=== PATIENT | female | born 1935 | race Caucasian/White ===

== ENCOUNTER 2020-09-11 20:43 | Observation (INO) | payer SELFPAY ==
--- NOTE | 2020-09-11 21:22 | RAD ---
XR Chest 1 View Portable History: Chest pain Comparison: None. Findings: Mild background lung hyperinflation. Scarring throughout the lung apices. Mild scarring hernandez g bases. No pneumothorax or effusion. Cardiac silhouette and mediastinal contours are within normal limits. Impression: Chronic findings. No acute intrathoracic abnormality.
[2020-09-11] MEDS ORDERED: Nitroglycerin 0.4 MG TAB 1 EACH ONE (21:23)
[2020-09-11 21:47] LABS: Hemoglobin 15.4 g/dL (12.0-16.0); Mean Corpuscular HGB CONC 34.4 g/dL (32.0-36.0); Mean Corpuscular Hemoglobin 30.3 pg (27.0-31.0); Mean Corpuscular Volume 88.2 fL (78.0-98.0); Mean Platelet Volume 7.5 fL (7.4-10.4); Platelet Count 256 thou/uL (130-400); RBC Distribution Width 12.8 % (11.5-14.5); Red Blood Cell (RBC) Count 5.07 mill/uL (4.20-5.40); White Blood Cell (WBC) Count 10.9 thou/uL (4.8-10.8)
[2020-09-11 21:48] LABS: Eosinophils 1 % (0-10); Lymphocytes 49 % (21-51); MDiff Complete? YES; Metamyelocyte 1 % (0-0); Monocytes 5 % (0-10); Neutrophil 42 % (42-75); Platelet Morphology Comment Appears Adequate; Reactive Lymphocytes 1 % (0-10)
[2020-09-11 21:53] LABS: ALT (SGPT) 15 U/L (8-55); AST (SGOT) 27 U/L (5-34); Albumin 4.4 g/dL (3.4-4.8); Alkaline Phosphatase 162 U/L (40-110); Anion Gap 17 mmol/L (10-20); BUN (Urea Nitrogen) 19 mg/dL (9.8-20.1); Bilirubin, Total 0.3 mg/dL (0.2-1.2); CK (CPK) 232 U/L (29-168); Calc. Creatinine Clearance 0 mL/min (70-130); Calcium 9.5 mg/dL (7.8-10.44); Carbon Dioxide 25 mmol/L (23-31); Chloride 98 mmol/L (98-107); Globulin 3.8 g/dL (2.4-3.5); Glucose 250 mg/dL (83-110); Lipase 35 U/L (8-78); Protein, Total 8.2 g/dL (6.0-8.3); Sodium 136 mmol/L (136-145)
[2020-09-11 22:16] LABS: CKMB 1.2 ng/mL (0-6.6)
[2020-09-11] MEDS ORDERED: Nitroglycerin 2% Ointment 1 INCH/1 GM Packet ONE (23:03)
[2020-09-11] MEDS ORDERED: Enoxaparin Sodium 60 MG/0.6 ML SYRINGE ONE (23:13)
[2020-09-12] MEDS ORDERED: Ondansetron PF 4 MG/2 ML Vial IVP PRN (00:05)
[2020-09-12] MEDS ORDERED: Ondansetron ODT 8 MG TAB PO PRN (00:05)
[2020-09-12] MEDS ORDERED: Acetaminophen 325 MG TAB PO PRN ×2 (00:15→02:57)
[2020-09-12] MEDS ORDERED: Nitroglycerin 2% Ointment 1 INCH/1 GM Packet TOP SCH (00:15)
[2020-09-12 01:13] VITALS: BMI 23.8
[2020-09-12] MEDS ORDERED: Acetaminophen 650 MG Suppository PR PRN (02:57)
--- NOTE | 2020-09-12 05:49 | HP ---
TIME OF ASSESSMENT: 0200. PRIMARY CARE PHYSICIAN: None. CHIEF COMPLAINT: Chest pain. HISTORY OF PRESENT ILLNESS: Ms. Pugh is an 84-year-old woman who presents to the emergency department today with complaints of left-sided chest pain which occurred earlier this evening at approximately 7:30 p.m. She states she was pulling the lever under the RV and when she bent over, she felt a crushing-type pain in the middle of her chest. She took one aspirin and states that the pain eventually subsided by the time she arrived to the emergency department. She reports having similar episode earlier in the morning, but does not recall at what time. She states she was outside and feels it was triggered by the cold air. Unclear how long the pain lasted, but she does state it was nonradiating. Reports having frequent episodes of discomfort over the last month, usually triggered by cold air, stress, and exertion. She denies any associated diaphoresis, nausea, or vomiting. No cough or hemoptysis. No lower extremity swelling or calf tenderness. Denies having any recent fevers, chills, or sweats. During the episode of pain that she experienced yesterday morning, she did take 3 aspirin. She states usually she takes aspirin whenever she experiences chest pain. The patient does not have care established with a primary care physician. States that she has a history of hypertension and was prescribed metoprolol 25 mg twice daily. She took it twice a day for about a week when it was prescribed in March; however, when she started feeling better, she states she began taking it once daily and eventually ran out after two months. She had been prescribed a one-month supply. The patient just had it refilled recently. She does not monitor her blood pressure. Denies having any cardiac procedures or workup in the past. REVIEW OF SYSTEMS: All other review of systems apart from those mentioned above in HPI are negative. HOSPITAL COURSE: The patient was brought to the emergency department by a friend. On arrival, she was noted to have an elevated blood pressure of 200/79, temp of 99.1, and heart rate of 80. She had an EKG done which demonstrated a normal sinus rhythm and evidence of a left bundle branch block. Heart rate was 95. There was inferior and lateral ST depression. Apparently, case was discussed with Dr. Morales who recommended Lovenox and conservative management with plans to evaluate her in the morning. LABORATORY STUDIES: She had laboratory studies that showed a white count of 10.9, hemoglobin 15.4, hematocrit 44.7, platelets 256, and neutrophils 42%. Sodium 136, potassium 4.0, BUN 19, creatinine 0.97, GFR 55, and glucose 250. LFTs unremarkable and lipase normal. Alkaline phosphatase was 162. CK 232. CK-MB 1.2 and troponin 0.032. IMAGING STUDIES: A chest x-ray was done, demonstrating chronic findings with no acute intrathoracic abnormality. Cardiac silhouette and mediastinal contours within normal limits. PAST MEDICAL HISTORY: Hypertension. PAST SURGICAL HISTORY: None. SOCIAL HISTORY: The patient lives alone. She is fully independent at baseline and denies any tobacco use, alcohol consumption, or drug use. FAMILY HISTORY: Noncontributory. ALLERGIES: NO KNOWN DRUG ALLERGIES. CURRENT MEDICATIONS: Metoprolol 25 mg p.o. b.i.d. PHYSICAL EXAMINATION: GENERAL: The patient appears well developed, well nourished, is resting comfortably in a chair and is in no acute distress. VITAL SIGNS: Temperature 98.2, pulse 79, respirations 18, O2 saturation 97% on room air, and blood pressure 183/80. HEENT: Normocephalic and atraumatic. Pupils are equal, round, and reactive to light. Sclerae, . Oropharynx is clear. NECK: Supple. LUNGS: Clear to auscultation bilaterally without any wheezes, rales, or rhonchi. CARDIAC: Regular rate and rhythm. ABDOMEN: Soft, nontender, nondistended. Normoactive bowel sounds present. No guarding or rigidity. No renal angle tenderness. EXTREMITIES: No lower extremity swelling or edema. No calf tenderness. NEUROLOGIC: Alert and oriented x3. No neuro deficits on exam. SKIN: Warm and dry. INVESTIGATIONS: As mentioned above in HPI. IMPRESSION AND PLAN: Ms. Pugh is a pleasant 84-year-old woman who admits to noncompliance with medications which consist of metoprolol 25 mg p.o. b.i.d. She apparently was prescribed this in March, had a one-month supply that lasted her two months before she ran out and went without medications until this past month. She states she has been compliant with it more recently and over the last few months, has noted progressively worsening chest pain that is triggered with stress, exertion and cold air. She came in due to having two episodes of chest pain yesterday, one in the morning, one in the evening. This was treated with aspirin and her symptoms are improved by the time she arrived to the emergency department; however, she was noted to have an elevated blood pressure of 200/79. The patient was given sublingual nitroglycerin and 1 inch of Nitro-Bid applied. Lovenox 1 mg/kg was given as per recommendations by Dr. Morales. The patient was admitted for further cardiac monitoring and workup. At this present time, she is refusing any further laboratory studies. She expressed understanding that we are recommending trending of her cardiac enzymes and the patient states she has no intention to have any type of labs or procedures done. She plans to speak to the fire captain in the morning and will likely go home after that. She is pain free at the moment. We will continue to monitor her blood pressure. She is agreeable to taking nitroglycerin sublingual p.r.n. for any recurring chest pain. Otherwise, refusing any other medications. The patient did express she would like to be placed on a DNR status. We will continue cardiac monitoring. The patient will remain n.p.o. pending Cardiology review. Job ID: [id number]
[2020-09-12] MEDS ORDERED: Aspirin 325 MG TAB PO SCH (09:00)
[2020-09-12] MEDS ORDERED: Enoxaparin Sodium 60 MG/0.6 ML SYRINGE SC SCH (09:00)
[2020-09-12] MEDS ORDERED: Famotidine 20 MG TAB PO SCH (09:00)
[2020-09-12 09:18] LABS: SARS-CoV-2 MS2 Positive; SARS-CoV-2 N Gene Negative; SARS-CoV-2 S Gene Negative; SARS-CoV-2 by NAA Not Detected (NotDetected); SARS-CoV-2 orf1ab Negative
[2020-09-12 10:52] VITALS: BP 176/81; TEMP 98.5
--- NOTE | 2020-09-12 13:11 | PDOC.DS.DS ---
Provider - Provider Date of Admission: 09/11/20 23:03 Date of Discharge: 09/12/20 (Patient left AGAINST MEDICAL ADVICE) Admitting Provider: Eduardo West MD Primary Care Physician: NO PCP PROVIDER Course - Hospital Course Hospital Course: Patient is a 89-year-old lady who was admitted to the hospital on September 12, 2020 for chest pain. Cardiology service was consulted. Following admission, patient decided not to stay in the hospital and she left AGAINST MEDICAL ADVICE. Resuscitation Status: 09/12/20 05:02 Resuscitation Status Routine Resuscitation Status: DNAR: NO Resuscitation Discussed with: Patient and MD Additional comments: Pt AOx4 - Labs Lab Results: 09/11/20 21:14 09/11/20 21:14 Abnormal Lab Results - Last 48 hrs 09/11/20 21:14: Alkaline Phosphatase 162 H, Creatine Kinase 232 H, Globulin 3.8 H 09/11/20 21:14: Troponin I 0.032 H 09/11/20 21:14: WBC 10.9 H - Physical Exam Vitals: Vital Signs (12 hours) Temp Pulse Resp BP Pulse Ox 09/12/20 07:00 98.5 F 75 18 176/81 H 96 09/12/20 03:59 98.0 F 70 20 184/74 H 94 L Weight Weight 121 lb 14.4 oz Plan - Discharge Medications Home Medications: Medication Instructions Recorded Confirmed Type Cholecalciferol (Vitamin D3) 1,000 unit PO DAILY 09/12/20 09/12/20 History [Vitamin D] Garlic [Odor Free Garlic-X] 1 tablet PO DAILY 09/12/20 09/12/20 History Herbal Drugs [Colon Herbal 1 each PO BID 09/12/20 09/12/20 History Cleanser] Metoprolol Tartrate 25 mg PO BID 09/12/20 09/12/20 History Multivit-Min/Iron/Folic/Lutein 1 each PO DAILY 09/12/20 09/12/20 History [Multivitamin Women 50 Plus Tab] Allergies: No Known Drug Allergies Allergy (Verified 09/12/20 01:21) PER ER NOTES - Follow up Plan Referrals: PROVIDER,NO PCP [Primary Care Provider] - Disposition: LEFT AGAINST MEDICAL ADVICE Quality - Care Measures CORE MEASURES:: N/A
== END 2020-09-12 10:56 | disposition left against medical advice (07) ==
LOC: ERS 20:43 → 2NO 23:03
PROVIDERS: ADMIT Internal Medicine; ATTEND Internal Medicine
DX: R07.9 Chest pain, unspecified (principal); I10 Essential (primary) hypertension; Z53.29 Procedure and treatment not carried out because of patient's decision for other reasons; Z66 Do not resuscitate; Z91.14 Patient's other noncompliance with medication regimen; Z79.899 Other long term (current) drug therapy; Z20.828 Contact with and (suspected) exposure to other viral communicable diseases
CPT/HCPCS: 71045; 80053; 82550; 82553; 83690; 84484; 85025; 87635; 93005; G0378; J1650; U0003

== ENCOUNTER 2021-11-24 13:10 | Inpatient (IN) | payer SELFPAY ==
[~2021-11-24 13:10] MED LIST: Iopamidol-370 76% 500 ML 1 ML ONE
[2021-11-24] MEDS ORDERED: Heparin 10,000 UNITS/ 10 ML VIAL ONE (13:31)
[2021-11-24] MEDS ORDERED: Heparin 25,000 units/D5W 500 ML ONE (13:33)
[2021-11-24 13:37] LABS: #Basophils 0.1 thou/uL (0.0-0.2); #Eosinphils 0.1 thou/uL (0.0-0.7); #Lymphocytes 4.1 thou/uL (1.20-3.40); #Neutrophils 11.4 thou/uL (1.40-6.50); %Basophils 0.6 % (0.0-1.0); %Eosinophils 0.9 % (0.0-10.0); %Lymphocytes 24.5 % (21.0-51.0); %Monocytes 6.2 % (0.0-10.0); %Neutrophils 67.8 % (42.0-75.0); Hemoglobin 14.9 g/dL (12.0-16.0); Mean Corpuscular HGB CONC 33.2 g/dL (32.0-36.0); Mean Corpuscular Hemoglobin 30.9 pg (27.0-31.0); Mean Corpuscular Volume 92.9 fL (78.0-98.0); Mean Platelet Volume 7.9 fL (7.4-10.4); Platelet Count 314 thou/uL (130-400); RBC Distribution Width 12.7 % (11.5-14.5); Red Blood Cell (RBC) Count 4.84 mill/uL (4.20-5.40); White Blood Cell (WBC) Count 16.7 thou/uL (4.8-10.8)
[2021-11-24 13:50] LABS: INR-International Normal Ratio 1.1; Prothrombin Time 14.4 sec (12.0-14.7)
[2021-11-24 13:51] LABS: D-Dimer Test 1.93 *mcg/mL (0.27-0.43)
[2021-11-24 14:00] LABS: ALT (SGPT) 13 U/L (8-55); AST (SGOT) 31 U/L (5-34); Albumin 3.8 g/dL (3.4-4.8); Alkaline Phosphatase 132 U/L (40-110); Anion Gap 18 mmol/L (10-20); BUN (Urea Nitrogen) 19 mg/dL (9.8-20.1); Bilirubin, Total 0.3 mg/dL (0.2-1.2); CK (CPK) 299 U/L (29-168); Calc. Creatinine Clearance 0 mL/min (70-130); Calcium 9.2 mg/dL (7.8-10.44); Carbon Dioxide 21 mmol/L (23-31); Chloride 102 mmol/L (98-107); Globulin 3.3 g/dL (2.4-3.5); Glucose 299 mg/dL (83-110); Magnesium 1.9 mg/dL (1.6-2.6); Potassium 3.8 mmol/L (3.5-5.1); Protein, Total 7.1 g/dL (5.8-8.1); Sodium 137 mmol/L (136-145)
[2021-11-24 14:11] LABS: PTT Greater than 250.0 sec (22.9-36.1)
[2021-11-24] MEDS ORDERED: Fentanyl 100 MCG/2 ML VIAL ONE ×2 (14:14→15:39)
[2021-11-24] MEDS ORDERED: DOBUTamine 500 mg/250 ml 250 ML ONE (14:26)
[2021-11-24] MEDS ORDERED: Furosemide 40 MG/4 ML VIAL ONE (14:31)
[2021-11-24] MEDS ORDERED: Norepinephrine 8 MG/0.9% NS 250 ML ONE (14:32)
[2021-11-24 14:40] LABS: CKMB 15.6 ng/mL (0-6.6)
[2021-11-24] MEDS ORDERED: Ondansetron PF 4 MG/2 ML Vial ONE (15:44)
[2021-11-24] MEDS ORDERED: Norepinephrine 8 MG/0.9% NS 250 ML IVPB PRN (15:52)
[2021-11-24] MEDS ORDERED: Nitroglycerin 0.4 MG TAB (25 Tab Bottle) SL PRN (15:55)
[2021-11-24] MEDS ORDERED: DOBUTamine 500 mg/250 ml 250 ML IVPB SCH (16:00)
[2021-11-24] MEDS ORDERED: Heparin 10,000 UNITS/ 10 ML VIAL SLOW IVP SCH (16:00)
[2021-11-24] MEDS ORDERED: Heparin 25,000 units/D5W 500 ML IVPB SCH (16:00)
[2021-11-24] MEDS ORDERED: Clopidogrel Bisulfate 300 MG TAB PO SCH (16:00)
[2021-11-24 16:31] LABS: Hemoglobin 15.2 g/dL (12.0-16.0); Platelet Count 360 thou/uL (130-400)
[2021-11-24] MEDS ORDERED: Promethazine HCl 12.5 MG in Sodium Chloride 0.9% 50 ML IVPB PRN (16:44)
[2021-11-24] MEDS ORDERED: Morphine 2 MG/ML VIAL SLOW IVP PRN (16:44)
[2021-11-24] MEDS ORDERED: Morphine 4 MG/ML VIAL ONE ×2 (16:45→18:47)
[2021-11-24 17:08] LABS: Troponin I 3.344 ng/mL (< 0.028)
[2021-11-24] MEDS ORDERED: Morphine 4 MG/ML VIAL SLOW IVP PRN (18:15)
[2021-11-24 18:17] VITALS: BMI 23.6
[2021-11-24] MEDS: Lorazepam 2 MG/ML VIAL SLOW IVP PRN (18:35)
[2021-11-24] MEDS: Morphine 4 MG/ML VIAL SLOW IVP PRN ×4 (18:35→23:20)
[2021-11-24] MEDS ORDERED: Lorazepam 2 MG/ML VIAL ONE (18:36)
[2021-11-24 19:06] LABS: SARS-CoV-2 NAA Rapid Test Not Detected (NotDetected)
[2021-11-24] MEDS ORDERED: Atorvastatin Calcium 40 MG TAB PO SCH (21:00)
[2021-11-25] MEDS: Lorazepam 2 MG/ML VIAL SLOW IVP PRN ×2 (04:20→08:51)
[2021-11-25 04:22] VITALS: TEMP 96.1
[2021-11-25] MEDS: Morphine 4 MG/ML VIAL SLOW IVP PRN ×2 (07:21→08:20)
[2021-11-25] MEDS ORDERED: Aspirin 325 mg Enteric Coated Tablet PO SCH (09:00)
[2021-11-25] MEDS ORDERED: Clopidogrel Bisulfate 75 MG TAB PO SCH (09:00)
== END 2021-11-25 10:05 | disposition expired ==
LOC: ERS 13:10 → ERHOLD 13:15 → CCU 17:36
PROVIDERS: ADMIT Internal Medicine; ATTEND Internal Medicine
PROC: 3E033XZ Introduction of Vasopressor into Peripheral Vein, Percutaneous Approach (ICD-10-PCS; principal; 2021-11-24)
DX: I21.3 ST elevation (STEMI) myocardial infarction of unspecified site (principal); I10 Essential (primary) hypertension; Z51.5 Encounter for palliative care; Z66 Do not resuscitate; R57.0 Cardiogenic shock; I44.7 Left bundle-branch block, unspecified; Z20.822 Contact with and (suspected) exposure to COVID-19; R00.0 Tachycardia, unspecified; I34.0 Nonrheumatic mitral (valve) insufficiency
CPT/HCPCS: 36415; 71045; 71275; 80053; 82550; 82553; 83735; 83880; 84484; 85025; 85379; 85610; 85730; 93005; 93306; 96365; 96366; 96367; 96375; 99292; J1250; J1644; J1940; J2060; J2270; J2405; J2550; J3010; Q9967; U0002